=== PATIENT | female | born 1980 | race Caucasian/White ===

== ENCOUNTER 2024-11-22 06:13 | Day surgery (SDC) | payer BC ==
[2024-11-22] MEDS ORDERED: Midazolam 1 MG/ML 2 ML SDV IV ONE (06:14)
[2024-11-22] MEDS ORDERED: Lidocaine 2% 100 MG/5 ML Syringe IVPUSH ONE (06:14)
[2024-11-22] MEDS ORDERED: Propofol 200 MG/20 ML SDV IV ONE (06:14)
[2024-11-22] MEDS ORDERED: Sodium Chloride 0.9% 10 ML Syringe FLUSH PRN (06:15)
[2024-11-22] MEDS: Lactated Ringers 1,000 ML IV SCH (07:07)
[2024-11-22] MEDS: ceFAZolin 1 GM Vial IVPUSH ONE (07:22)
[2024-11-22] MEDS: Lidocaine 1% with EPINEPHrine 1:100,000 20 ML MDV INJECT ONE (07:44)
[2024-11-22] MEDS: Sodium Bicarbonate 8.4% 50 MEQ/50 ML Syringe ONE (07:44)
[2024-11-22] MEDS: Bupivacaine 0.5% 30 ML SDV INJECT ONE (07:44)
== END 2024-11-22 09:08 | disposition home or self-care (01) ==
LOC: FB.SDS 06:13
PROVIDERS: ATTEND Surgery
DX: M72.4 Pseudosarcomatous fibromatosis (principal); Z91.018 Allergy to other foods; Z79.899 Other long term (current) drug therapy
CPT/HCPCS: 00400; 88307; 88313; 88325; 88341; 88342; J0665; J0690; J2250; J2704; J7120